=== PATIENT | female | born 1940 | race Caucasian/White ===

== ENCOUNTER → 2018-08-04 | Outpatient (CLI) | payer BC | LOC: FIMAGING 09:47 | PROVIDERS: ATTEND Neurological Surgery | DX: I60.7 Nontraumatic subarachnoid hemorrhage from unspecified intracranial artery (principal); G31.9 Degenerative disease of nervous system, unspecified; R90.82 White matter disease, unspecified; Z98.2 Presence of cerebrospinal fluid drainage device ==

== ENCOUNTER → 2018-09-21 | Outpatient (CLI) | payer BC, OTHER | LOC: FIMAGING 14:58 | PROVIDERS: ATTEND Physician Assistant | DX: S06.5X0A Traumatic subdural hemorrhage without loss of consciousness, initial encounter (principal) ==

== ENCOUNTER → 2018-12-01 | Outpatient (CLI) | payer BC, OTHER ==
[~2018-12-01] MED LIST: GADOBUTROL 10 ML VIAL IVP ONE
== END ==
LOC: FIMAGING 10:07
PROVIDERS: ATTEND Neurological Surgery
DX: I51.7 Cardiomegaly (principal); G91.0 Communicating hydrocephalus; I60.7 Nontraumatic subarachnoid hemorrhage from unspecified intracranial artery; Z98.2 Presence of cerebrospinal fluid drainage device
CPT/HCPCS: 82565-PO; A9585